=== PATIENT | male | born 1960 | race Caucasian/White ===

== ENCOUNTER 2016-10-01 03:12 | Emergency (ER) | payer OTHER ==
[~2016-10-01] VITALS: Ht 180.3 cm; Wt 115.0 kg
[2016-10-01 03:20] VITALS: BP 135/86; PULSE 98; RESP 18; TEMP 98; O2SAT 98
[2016-10-01] MEDS ORDERED: PAXI40TA8 (03:40)
[2016-10-01] MEDS ORDERED: LITH8SOL2 PO (03:40)
[2016-10-01] MEDS ORDERED: TOPA25TA8 PO (03:40)
[2016-10-01] MEDS ORDERED: ATOR20TA15 PO (03:40)
--- NOTE | 2016-10-01 03:48 | PD ---
HPI Chief Complaint: Medical Clearance Time Seen by Provider: 03:48 Travel History International Travel<30 days: No Contact w/Intl Traveler<30days: No Traveled to known affect area: No History of Present Illness HPI 55-year-old male with history of bipolar disorder presents to the emergency department under Baird act for psychiatric evaluation. Patient states he has been under a lot of stress at work lately. He drank alcohol this evening which he typically does not. He states he had a rather large amount. This caused him to stoop into a depression. He said things that cause his to be concerned that he is going harm himself. He states he does have several guns in the house. States he has no suicidal or homicidal ideations. He has no plan. He has no previous suicide attempts. Denies any other acute medical needs at this time. PFSH Past Medical History Bipolar Disorder: Yes Depression: Yes Diminished Hearing: No Tetanus Vaccination: Unknown Influenza Vaccination: No Past Surgical History Appendectomy: Yes Social History Alcohol Use: Yes (OCCASSIONALLY) Tobacco Use: Yes (OCCASSIONALLY) Substance Use: No Allergies-Medications (Allergen,Severity, Reaction): Coded Allergies: No Known Allergies (Unverified , 10/01/16) Reported Meds & Prescriptions Reported Meds & Active Scripts Active Reported Atorvastatin (Atorvastatin Calcium) 20 Mg Tab 20 Mg PO HS Topamax (Topiramate) 25 Mg Tab 10 Mg PO DAILY Waterproof (Waterproof Citrate) 8 Meq/5 Ml Solution 20 Mg PO BID Paxil (Paroxetine HCl) 40 Mg Tablet Review of Systems Except as stated in HPI: all other systems reviewed are Neg Physical Exam Narrative GENERAL: Well-nourished male patient, tearful but in no acute distress SKIN: Focused skin assessment warm/dry. HEAD: Atraumatic. Normocephalic. EYES: Pupils equal and round. No scleral icterus. bilateral injection; no drainage. ENT: No nasal bleeding or discharge. Mucous membranes pink and moist. NECK: Trachea midline. No JVD. CARDIOVASCULAR: Regular rate and rhythm. No murmur appreciated. RESPIRATORY: No accessory muscle use. Clear to auscultation. Breath sounds equal bilaterally. GASTROINTESTINAL: Abdomen soft, non-tender, nondistended. Hepatic and splenic margins not palpable. MUSCULOSKELETAL: No obvious deformities. No clubbing. No cyanosis. No edema. NEUROLOGICAL: Awake and alert. No obvious cranial nerve deficits. Motor grossly within normal limits. Normal speech. Data Data Last Documented VS Vital Signs Date Time Temp Pulse Resp B/P Pulse Ox O2 Delivery O2 Flow Rate FiO2 10/01/16 03:20 98.0 98 18 135/86 98 Orders Complete Blood Count With Diff (10/01/16 03:33) Basic Metabolic Panel (Bmp) (10/01/16 03:33) Psych Screen (10/01/16 03:33) Drug Screen, Random Urine (10/01/16 03:33) Alcohol (Ethanol) (10/01/16 03:33) Ns (Bolus) Inj (10/01/16 06:15) Labs Laboratory Tests Test 10/01/16 10/01/16 03:43 05:50 White Blood Count 10.0 TH/MM3 Red Blood Count 5.22 MIL/MM3 Hemoglobin 16.7 GM/DL Hematocrit 48.0 % Mean Corpuscular Volume 92.0 FL Mean Corpuscular Hemoglobin 32.0 PG Mean Corpuscular Hemoglobin 34.8 % Concent Red Cell Distribution Width 14.6 % Platelet Count 260 TH/MM3 Mean Platelet Volume 8.5 FL Neutrophils (%) (Auto) 74.0 % Lymphocytes (%) (Auto) 19.4 % Monocytes (%) (Auto) 5.3 % Eosinophils (%) (Auto) 0.7 % Basophils (%) (Auto) 0.6 % Neutrophils # (Auto) 7.4 TH/MM3 Lymphocytes # (Auto) 1.9 TH/MM3 Monocytes # (Auto) 0.5 TH/MM3 Eosinophils # (Auto) 0.1 TH/MM3 Basophils # (Auto) 0.1 TH/MM3 CBC Comment DIFF FINAL Differential Comment Sodium Level 142 MEQ/L Potassium Level 4.0 MEQ/L Chloride Level 111 MEQ/L Carbon Dioxide Level 17.7 MEQ/L Anion Gap 13 MEQ/L Blood Urea Nitrogen 19 MG/DL Creatinine 1.37 MG/DL Estimat Glomerular Filtration 54 ML/MIN Rate Random Glucose 116 MG/DL Calcium Level 8.5 MG/DL Ethyl Alcohol Level 93 MG/DL Urine Opiates Screen NEG Urine Barbiturates Screen NEG Urine Amphetamines Screen NEG Urine Benzodiazepines Screen NEG Urine Cocaine Screen NEG Urine Cannabinoids Screen NEG MDM Medical Decision Making Medical Screen Exam Complete: Yes Emergency Medical Condition: Yes Medical Record Reviewed: Yes Differential Diagnosis Substance induced mood disorder versus adjustment reaction disorder versus personality disorder versus mood disorder Narrative Course 55-year-old male presents to the emergency department under Baird act for psychiatric evaluation. Patient appears without distress. CBC is without acute concern. BMP BUN 19, creatinine 1.37, GFR is 54. EtOH is 93. Toxicology is negative. Patient is given IV fluids. He is medically cleared to undergo psychiatric screening for further evaluation and disposition. Mental health screening discussed with the patient. Psychiatric screen ordered. Diagnosis Primary Impression: Substance induced mood disorder Condition: Stable Patito Fields Oct 01, 2016 03:48
[2016-10-01 04:07] LABS: AUTOMATED NEUTROPHIL # 7.4 TH/MM3 (1.8-7.7); BASOPHIL # 0.1 TH/MM3 (0-0.2); BASOPHIL % 0.6 % (0.0-2.0); EOSINOPHIL # 0.1 TH/MM3 (0-0.4); EOSINOPHIL % 0.7 % (0.0-4.0); HEMO FLAGS DIFF FINAL; LYMPH % 19.4 % (9.0-44.0); LYMPHOCYTE # 1.9 TH/MM3 (1.0-4.8); MEAN CORPUSCULAR HGB CONC 34.8 % (32.0-36.0); MONO % 5.3 % (0.0-8.0); PLATELET COUNT 260 TH/MM3 (150-450); RED BLOOD COUNT 5.22 MIL/MM3 (4.50-5.90); RED CELL DISTRIBUTION WIDTH 14.6 % (11.6-17.2)
[2016-10-01 04:27] LABS: BICARBONATE 17.7 MEQ/L (21.0-32.0)
[2016-10-01 06:09] LABS: AMPHETAMINE, URINE NEG (NEG); BARBITURATES, URINE NEG (NEG); COCAINE, URINE NEG (NEG)
[2016-10-01] MEDS ORDERED: SODIUM CHLOR 0.9% 1000 ML INJ 1,000 ML IV ONE (06:15)
--- NOTE | 2016-10-01 10:17 | MB ---
cc: TIMI PARSONS DATE OF CONSULTATION: 10/01/2016 REQUESTING PHYSICIAN: Emergency department. REASON FOR CONSULTATION: Baird ACT HISTORY OF PRESENT ILLNESS Mr. Connors is a 55-year-old male with a reported history of depression and alcohol use disorder who presents under a Baird ACT from [employer] [employer] alleging that the patient made statements about killing himself if something were to happen or if he got cancer. Reviewing the electronic medical record, I see no prior psychiatric contact within our system and this is in fact the patient's first visit to [place]. Of note, the patient's alcohol level was 93 on presentation here. The patient seen and examined. Chart reviewed. There has been no evidence of any suicidality or homicidality while the patient has been under observation in the emergency room overnight. On my examination this morning, the patient is clinically sober. He denies any suicidal or homicidal ideation, intent or plan and contracts for safety. He says that the circumstances of his presentation here were a misunderstanding. He says that he took his mother for surgery and returned to his mother's house where he slipped up in his alcoholism and had a drink or two. He says that he took off in his truck an intoxicated state. His family, apparently unable to locate him, called the police, and the police decided to Baird act him. He does admit to feeling somewhat stressed out by circumstances at work. Apparently, the patient was passed up for a promotion several years ago and now is being asked to do work that his new superior is unable to do, and this is frustrating for him. He denies any severe depression, however, and I can elicit no depressive symptoms such as anhedonia, hopelessness or worthlessness or morbid guilt. He denies any sleep or appetite disturbance. No hypomanic or manic symptoms. He denies audiovisual hallucinations and I can elicit no delusional beliefs. The remainder of the psychiatric ROS is negative. The patient is requesting discharge from the psychiatric emergency room this morning. With the patient's permission, I have obtained collateral from his Geri Connors at [phone]. She verbalizes no concerns about the patient being a risk of harm to himself or others. She is concerned about his alcohol use, and I have counseled her regarding the ACT. I have also recommended that she secure the home of any potential means of harm to self or others out of an abundance of caution including guns, knifes, medications, etc. PAST PSYCHIATRIC HISTORY The patient reports a history of depression. She sees he sees a psychiatrist in [facility]. He has prescribed lithium and Paxil which he tolerates well and with which he has been compliant. He denies a history of psychiatric admissions or suicide attempts. FAMILY HISTORY The patient denies any family history of serious mental illness or suicide. He does have five alcohol his family history of alcoholism in his father. CHEMICAL DEPENDENCY HISTORY: The patient reports that he is an alcoholic. He had been sober for 3 months before relapsing at presentation. He does have a history of drug rehab in the past. His longest sober times 24 months. No other substance use. SOCIAL HISTORY The patient reports that this is his second marriage. He is to children from the Current marriage and two from previous marriage. He is college educated. He is retired [employer] having served 23 years and now works for the [employer]. He denies any legal history, denies any history of DUI's. He does have several guns that are kept in a gun safe and he has never had a suicide plan involving a firearm. PAST MEDICAL HISTORY See electronic medical record. REVIEW OF SYSTEMS No reported headache, vision or hearing changes, chest pain, shortness of breath, bowel or bladder issues. No other physical complaints. PHYSICAL EXAMINATION VITAL SIGNS: Temperature is 98.0, pulse 98, respirations 18, blood pressure 135/86, pulse oximetry 98% on room air. A physical examination was completed in the emergency room by the ER staff and the patient was medically cleared. On my examination today, the patient appears to be in no acute physical distress. No motor abnormalities noted. LABORATORY Reviewed: Of note, the patient's alcohol level was 93. MENTAL STATUS EXAM The patient is in hospital gown. He is well-groomed. He is awake, alert and oriented x3. There is no evidence of delirium. No motor abnormalities noted. Speech is within normal limits for rate, tone and volume. Language and fund of knowledge seem average. Focus station, intact. Memory grossly intact on clinical exam. Mood fair and affect full and reactive. Thought process linear. No loosening of associations. No evident. No delusions elicited. Denies audiovisual hallucinations. Denies suicidal or homicidal ideation, intent or plan. Insight and judgment are fair. ASSESSMENT/PLAN Alcohol dependence with intoxication, intoxication now resolved, F10.220 This is a 55-year-old male with psychiatric history as detailed above who presents under Baird ACT by law enforcement. On my examination today, the patient is clinically sober and denies any suicidal or homicidal ideation, intent or plan. I can detect no unstable mental illness as defined under the Baird ACT in this patient at this time. He appears to be attending to his basic needs. I have obtained reassuring collateral from the patient's . Since assessing the above information. Weighing the relevant factors, I hematology oncology consultant to a reasonable degree of medical certainty that the patient does not meet Baird ACT criteria at this time. I have lifted the Baird ACT. I have recommended that the patient pursue chemical dependency evaluation and treatment. I have counseled the patient regarding warning signs for need to return to the psychiatric emergency room as part of a general safety plan. The patient is psychiatrically clear for discharge from the ED. Thank you very much for this consultation. Timi Parsons DC/drew /7:22 AM /9:32 AM JOSEF
== END 2016-10-01 08:54 | disposition home or self-care (01) ==
LOC: NEPE 03:12
DX: F10.229 Alcohol dependence with intoxication, unspecified (principal); F19.94 Other psychoactive substance use, unspecified with psychoactive substance-induced mood disorder; F31.9 Bipolar disorder, unspecified; Z72.0 Tobacco use; Z79.899 Other long term (current) drug therapy
CPT/HCPCS: 80048; 80307; 85025; 96360; 99284; J7030